=== PATIENT | female | born 1955 | race African-American/Black ===

== ENCOUNTER 2023-04-07 23:01 | Emergency (ER) | payer MEDICARE ==
[~2023-04-07] VITALS: Ht 157.5 cm; Wt 89.0 kg
[2023-04-07 23:13] VITALS: BP 187/99; TEMP 98.3
[2023-04-08] MEDS ORDERED: PREDNISONE 20MG TABLET PO STA (03:35)
[2023-04-08] MEDS ORDERED: IPRATROPIUM BROMIDE (0.02%) 0.5MG/2.5ML NEB HHN STA (03:35)
[2023-04-08] MEDS ORDERED: ALBUTEROL (0.083%) 2.5MG/3ML NEB HHN STA (03:35)
[2023-04-08 03:49] VITALS: PULSE 93; RESP 20; O2SAT 95
[2023-04-08] MEDS ORDERED: PRED10TA23 MT (05:23)
[2023-04-08] MEDS ORDERED: ALBU90AE INH (05:23)
== END 2023-04-08 05:59 | disposition home or self-care (01) ==
LOC: ER 23:01
DX: J45.901 Unspecified asthma with (acute) exacerbation (principal); F19.90 Other psychoactive substance use, unspecified, uncomplicated; Z90.49 Acquired absence of other specified parts of digestive tract; Z98.890 Other specified postprocedural states
CPT/HCPCS: 99283; 94640; 71045; J7512